=== PATIENT | female | born 1985 | race American Indian/Alaskan Native ===

== ENCOUNTER 2019-12-18 00:46 | Inpatient (IN) | payer MEDICAID ==
[2019-12-18] MEDS ORDERED: TERBUTALINE 1 MG/1 ML INJ SUB-Q PRN (00:48)
[2019-12-18] MEDS ORDERED: AMPICILLIN/NS 2 GM/100 ML 2 GM/100 ML BAG IV ONE (00:48)
[2019-12-18] MEDS ORDERED: ePHEDrine SULFATE 50 MG/1 ML INJ IV PRN ×2 (00:48→02:47)
[2019-12-18] MEDS ORDERED: LIDOCAINE (2%) 20 MG/1 ML VIAL 20 ML MDV INFILTRATI ONE (00:48)
[2019-12-18] MEDS ORDERED: TERBUTALINE 1 MG/1 ML INJ IVP PRN (00:48)
[2019-12-18] MEDS ORDERED: MINERAL OIL 30 ML ORAL LIQD PO PRN (00:48)
[2019-12-18] MEDS ORDERED: LACTATED RINGERS 1,000 ML IV SCH ×2 (01:00→04:00)
[2019-12-18] MEDS ORDERED: OXYTOCIN 20 UNIT/1000ML DRIP 20 UNITS/1,000 ML BAG IV SCH ×3 (01:00→08:00)
[2019-12-18] MEDS ORDERED: OXYTOCIN DRIP 30 UNITS/500 ML BAG IV SCH (01:00)
[2019-12-18 01:42] LABS: Hematocrit 32.1 % (30.3-42.9); Hemoglobin 10.3 gm/dl (10.1-14.3); Mean Corpuscular HGB Conc 32 % (30-34); Mean Corpuscular Volume 79 fl (79-97); Platelet Count 296 K/mm3 (140-440); Red Blood Count 4.07 M/mm3 (3.65-5.03)
--- NOTE | 2019-12-18 01:54 | History and Physical Report ---
History of Present Illness Date of examination: 12/18/19 Date of admission: 12/18/19 00:46 Chief complaint: contractions History of present illness: Pt is a 34 year old -[place] female primigravida KRYSTLE 12/31/19 at 38w1d who presents with regular painful contractions and advanced cervical dilation of 8 cm. She reports rupture of membranes at 2356 pm. She has had care at [facility] with comanagement by MFM secondary to fibroid uterus (8.1 cm ), UTI treated with Macrobid, anemia with thrombocytosis, hidradenitis s/p Derm referral. She is GBS positive. Past History Past Medical History: other (hidradenitis ) Past Surgical History: no surgical history Family/Genetic History: none Social history: no significant social history - Obstetrical History Expected Date of Delivery: 12/31/19 Actual Gestation: 38 Week(s) 1 Day(s) : 1 Medications and Allergies Allergies Allergy/AdvReac Type Severity Reaction Status Date / Time No Known Allergies Allergy Unverified 12/18/19 00:48 Active Meds: Active Medications Ephedrine Sulfate (Ephedrine Sulfate) 10 mg IV Q2M PRN PRN Reason: Hypotension Oxytocin/Sodium Chloride (Pitocin/Ns 20 Unit/1000ml Drip) 20 units in 1,000 mls @ 125 mls/hr IV DIRECT KAVON Oxytocin/Sodium Chloride (Pitocin/Ns 30 Unit/500ml) 30 units in 500 mls @ 2 mls/hr IV TITR KAVON; Protocol Lactated Ringer's (Lactated Ringers) 1,000 mls @ 125 mls/hr IV DIRECT KAVON Last Admin: 12/18/19 01:13 Dose: 125 mls/hr Documented by: Ampicillin Sodium (Ampicillin/Ns 1 Gm/50 Ml) 1 gm in 50 mls @ 100 mls/hr IV Q4HR KAVON; Protocol Mineral Oil (Mineral Oil) 30 ml PO QHS PRN PRN Reason: Constipation Terbutaline Sulfate (Brethine) 0.25 mg SUB-Q ONCE PRN PRN Reason: Hyperstimulation/Hypertonicity Terbutaline Sulfate (Brethine) 0.25 mg IVP ONCE PRN PRN Reason: Hyperstimulation/Hypertonicity Review of Systems All systems: negative - Vital Signs Vital signs: Vital Signs Temp Pulse Resp BP Pulse Ox 98.1 F 79 18 128/89 100 12/18/19 01:07 12/18/19 01:07 12/18/19 01:07 12/18/19 01:07 12/18/19 01:07 Temp Pulse Resp BP Pulse Ox 98.1 F 79 18 128/89 100 12/18/19 01:07 12/18/19 01:07 12/18/19 01:07 12/18/19 01:07 12/18/19 01:07 - Physical Exam Breasts: Positive: deferred Cardiovascular: Regular rate Lungs: Positive: Clear to auscultation Abdomen: Positive: soft (gravid ) Uterus: Positive: enlarged (gravid ) Extremities: Positive: normal - Obstetrical FHR: auscultation normal Uterine Contraction Monitor Mode: External Cervical Dilatation: 8 Cervical Effacement Percentage: 100 station: 0 Results Result Diagrams: 12/18/19 01:15 Abnormal lab results 12/18/19 Range/Units 01:15 WBC 11.7 H (4.5-11.0) K/mm3 MCH 25 L (28-32) pg RDW 18.0 H (13.2-15.2) % All other labs normal. Assessment and Plan A: IUP at 38w1d PROM Active labor GBS Positive Hidradenitis Supportiva P: Admit to labor and delivery GBS prophylaxis Monitor maternal and status
[2019-12-18] MEDS ORDERED: NALOXONE 2 MG/2 ML INJ IV PRN (02:47)
[2019-12-18] MEDS ORDERED: fentaNYL-BUPIV 2 MCG/ML-0.125% 200 MCG/100 ML BAG EPIDURAL SCH (03:00)
[2019-12-18] MEDS ORDERED: ONDANSETRON 4 MG/2 ML INJ IV PRN ×2 (03:30→08:00)
[2019-12-18] MEDS ORDERED: HYDROmorphone 1 MG/1 ML INJ IV PRN (03:30)
--- NOTE | 2019-12-18 03:32 | Event Note ---
Date: 12/18/19 Pt remains 7-8 cm despite adequate contractility for over 2.5 hours. Plan to proceed with primary section. Anesthesia aware.
[2019-12-18] MEDS ORDERED: FAMOTIDINE 20 MG/2 ML INJ IV ONE (03:33)
[2019-12-18] MEDS ORDERED: METOCLOPRAMIDE 10 MG/2 ML INJ IV ONE (03:33)
[2019-12-18] MEDS ORDERED: BICITRA ORAL LIQD 30ML PO ONE (03:33)
--- NOTE | 2019-12-18 03:36 | Anesthesia Day of Surgery ---
Anesthesia Day of Surgery - Day of Surgery Patient Examined: Yes Patient H&P Reviewed: Yes Patient is NPO: Yes Beta Blockers: No Cardiac Clearance: No Pulmonary Clearance: No Trino's Test: N/A
--- NOTE | 2019-12-18 03:36 | Anesthesia Consultation ---
Anesthesia Consult and Med Hx Date of service: 12/18/19 - Airway Anesthetic Teeth Evaluation: Good ROM Head & Neck: Adequate Mental/Hyoid Distance: Adequate Mallampati Class: Class II Intubation Access Assessment: Probably Good - Pulmonary Exam CTA: Yes - Cardiac Exam Cardiac Exam: RRR - Pre-Operative Health Status ASA Pre-Surgery Classification: ASA2 Proposed Anesthetic Plan: Epidural - Pulmonary Hx Smoking: No Hx Asthma: No Hx Respiratory Symptoms: No SOB: No COPD: No Home Oxygen Therapy: No Hx Pneumonia: No Hx Sleep Apnea: No - Cardiovascular System Hx Hypertension: No Hx Coronary Artery Disease: No Hx Heart Attack/AMI: No Hx Angina: No Hx Percutaneous Transluminal Coronary Angioplasty (PTCA): No Hx Cardia Arrhythmia: No Hx Pacemaker: No Hx Internal Defibrillator: No Hx Valvular Heart Disease: No Hx Heart Murmur: No - Central Nervous System Hx Neuromuscular Disorder: No Hx Seizures: No CVA: No Hx Back Pain: No Hx Psychiatric Problems: No - Gastrointestinal Hx Ulcer: No Hx Gastroesophageal Reflux Disease: Yes - Endocrine Hx Renal Disease: No Hx End Stage Renal Disease: No Hx Cirrhosis: No Hx Liver Disease: No Hx Insulin Dependent Diabetes: No Hx Non-Insulin Dependent Diabetes: No Hx Thyroid Disease: No Hx Hypothyroidism: No Hx Hyperthyroidism: No - Hematic Hx Anemia: No Hx Sickle Cell Disease: No - Other Systems Hx Alcohol Use: No Hx Substance Use: No Hx Cancer: No Hx Obesity: No
[2019-12-18] MEDS ORDERED: DEXMEDETOMIDINE 200 MCG/2 ML VIAL IV ONE (03:47)
[2019-12-18] MEDS ORDERED: LIDOCAINE 2%/EPINEPHRINE 1:200,000 VIAL (20 ML) INFILTRATI ONE (03:47)
[2019-12-18] MEDS ORDERED: ceFAZolin/Water 2 GM/20 ML 2 GM/20 ML SYRINGE IV NR (04:00)
[2019-12-18] MEDS ORDERED: ceFAZolin/STERILE WATER 2 GM/20 ML SYRINGE IV ONE (04:16)
[2019-12-18] MEDS ORDERED: WATER FOR IRRIG STERILE 1,500 ML BOTTLE IR ONE (04:16)
[2019-12-18] MEDS ORDERED: SODIUM CHLORIDE 0.9% IRR 1,500 ML BOTTLE IR ONE (04:16)
[2019-12-18] MEDS ORDERED: ONDANSETRON 4 MG/2 ML INJ ONE (04:23)
[2019-12-18] MEDS ORDERED: KETOROLAC 30 MG/1 ML INJ ONE (04:23)
[2019-12-18] MEDS ORDERED: METHYLERGONOVINE MALEATE 0.2 MG/ML VIAL IM ONE ×2 (04:30→04:32)
[2019-12-18] MEDS ORDERED: AMPICILLIN/NS 1 GM/50 ML 1 GM/50 ML BAG IV SCH (04:50)
--- NOTE | 2019-12-18 05:15 | Operative Report ---
Operative Report Operative Report: Date of procedure: December 18, 2019 Preoperative diagnosis: 1) IUP at 38w1d 2) Arrest of Dilation 3) Fibroid Uterus Postoperative diagnosis: Same Procedure: Primary low transverse section Surgeon: Genet Chaney M.D. Anesthesia: Regional Findings: 1) Viable female , Apgars 8 and 9, weight 2900g, (6 lb 6.2 oz) in cephalic presentation 2) Fibroid uterus with multiple fibroids including a 9 cm pedunculated subserosal fibroid on the right side of the uterus 3) Normal appearing ovaries and tubes Estimated blood loss: 900 mL IV fluids:900 mL Urine output: 200 mL, clear at the end of the procedure Drains: [place] to gravity Specimens: Placenta to pathology Complications: None. Counts correct x 3 Disposition: Stable to PACU Indication for procedure: Pt is a 34 year old -[place] female primigravida at 38w1d who presents in active labor but failed to progress beyond 8 cm despite 3 hours of adequate contractility. The decision was made to proceed to section. Operation in detail: After the risks, benefits, alternatives and complications were explained to the patient she gave informed consent for the procedure. She was subsequently taken to the operating room where regional anesthesia was noted to be adequate. She was subsequently placed in the dorsal supine position with leftward tilt and prepped and draped in a normal sterile fashion. heart tones were noted prior to incision. A timeout was performed. A Pfannenstiel skin incision was made with the knife and carried down to the layer of the fascia with the Bovie. The fascia was incised in the midline and the fascial incision was extended bilaterally with the Bovie. The fascial incision was then stretched. The rectus muscles were then in the midline and partially transected for adequate visualization. The peritoneum was then entered bluntly. The peritoneal incision was extended with good visualization of the bladder. The peritoneal incision was then stretched. The bladder blade was then placed. A transverse incision was made in the lower uterine segment with a knife and extended bilaterally with the bandage scissors. Amniotomy was performed with egress of clear fluid. The delivered without difficulty, easily followed by shoulders and body. bulb suctioned at delivery. Cord clamped and cut. handed to NICU staff in attendance. The placenta was then delivered manually. The uterus was then cleared of all clots and debris. The hysterotomy was then reapproximated with 0 Vicryl in a running locked fashion. A second layer of the same suture was used in imbricating fashion. An additional figure of eight of 0 vicryl was placed at the center side of the hysterotomy for hemostasis. The hysterotomy was inspected and hemostasis was noted. The gutters were irrigated and cleared of all clots and debris. The hysterotomy was again inspected and noted to be hemostatic. Surgicel was placed over the hysterotomy. The peritoneum was reapproximated with 2-0 Vicryl in a running fashion incorporating the rectus muscles. The fascia was reapproximated with 0 Vicryl in a running fashion. The subcutaneous tissue was reapproximated with 3-0 Vicryl in a running fashion. The skin was reapproximated with 4-0 Vicryl in a subcuticular fashion. The incision was then covered with steristrips and a pressure dressing. The procedure was then ended. The patient tolerated the procedure well and was taken to the PACU in stable condition. All instrument, lap, and needle counts were correct 3.
--- NOTE | 2019-12-18 05:15 | Procedure Note ---
OB Delivery Note - Delivery Date of Delivery: 12/18/19 Surgeon: CHARLIE HILL Estimated blood loss: other (900 mL) - Section Preop diagnosis: arrest of dilation Postop diagnosis: same section procedure: section, primary low transverse Disposition: PACU Complications: none Narrative: Please see delivery note. - A at 1 minute: 8 at 5 minutes: 9 Infant Gender: Female (2900g (6lb 6.2 oz) @ 0424 am)
[2019-12-18] MEDS ORDERED: SIMETHICONE 80 MG CHEW TAB PO PRN (08:00)
[2019-12-18] MEDS ORDERED: WITCH HAZEL/ GLYCERIN PAD TP PRN (08:00)
[2019-12-18] MEDS ORDERED: NALOXONE 0.4 MG/1 ML INJ IV PRN (08:00)
[2019-12-18] MEDS ORDERED: LANOLIN/ZINC/DIMETHICONE (LANSINOH) 7 GM TP PRN (08:00)
[2019-12-18] MEDS: KETOROLAC 30 MG/1 ML INJ IV SCH ×3 (09:09→19:57)
[2019-12-18] MEDS: ceFAZolin/NS 1 GM/50 ML 1 GM/50 ML BAG IV SCH ×2 (09:43→17:53)
[2019-12-18] MEDS: FERROUS SULFATE 325 MG TAB PO SCH (09:43)
--- NOTE | 2019-12-18 10:17 | Post Anesthesia Evaluation ---
- Post Anesthesia Evaluation Patient Participated: Yes Airway Patent: Yes Stable Respiratory Function: Yes Nausea/Vomiting: No Temp > 96.8F: Yes Pain Manageable: Yes Adequeate Hydration: Yes Anesthesia Complications: No Block Receding Appropriately: Yes Patient on Ventilator: No
[2019-12-18] MEDS: D5W/LACTATED RINGERS 1,000 ML IV SCH ×2 (13:27→21:28)
[2019-12-18 16:31] LABS: Hemoglobin 8.5 gm/dl (10.1-14.3)
[2019-12-19] MEDS: KETOROLAC 30 MG/1 ML INJ IV SCH (02:44)
[2019-12-19] MEDS: oxyCODONE /ACETAMINOPHEN 5-325MG TAB PO PRN ×3 (05:29→22:22)
[2019-12-19] MEDS ORDERED: IBUPROFEN 800 MG TAB PO SCH (06:00)
[2019-12-19] MEDS ORDERED: TETANUS,DIPH,PERTUSS(ACELL) VACCINE 0.5 ML SYRINGE IM ONE (06:00)
--- NOTE | 2019-12-19 08:05 | Progress Note ---
Assessment and Plan A: POD1 s/p primary LTCS Vital signs stable Acute on chronic anemia due to and blood loss P: Routine care Ferrous sulfate supplementation Reviewed breast feeding education Anticipate d/c to home on POD2 or 3 Subjective - Subjective Date of service: 12/19/19 Principal diagnosis: s/p primary LTCS Interval history: POD1 s/p primary LTCS for failure to progress Patient reports: appetite normal, voiding normally, pain well controlled, flatus, ambulating normally : doing well, bottle feeding (attempting to breast feed) Objective - Vital Signs Latest vital signs: Vital Signs Temp Pulse Resp BP Pulse Ox 12/19/19 05:34 97.8 F 68 20 110/74 99 12/19/19 05:29 18 12/19/19 02:44 18 12/18/19 23:47 98.0 F 85 18 112/76 100 12/18/19 21:22 98.1 F 90 18 122/80 98 12/18/19 19:57 18 12/18/19 15:46 98.9 F 86 20 118/76 97 12/18/19 14:53 20 12/18/19 11:31 98.3 F 87 20 117/76 96 12/18/19 09:09 20 Intake and Output 12/18/19 12/19/19 12/19/19 23:59 07:59 15:59 Intake Total 1360 480 Output Total 1350 250 Balance 10 230 Intake: IV 1000 D5lr 1,000 ml @ 125 mls/ 1000 hr IV DIRECT KAVON Rx#: [id number] Oral 120 Intake, Free Water 240 480 Output: Urine 1350 250 Indwelling Catheter 550 Void 800 250 Other: Total, Intake Amount 120 Total, Output Amount 250 250 # Voids Void 2 - Exam Lungs: Present: Normal air movement Abdomen: Present: soft Uterus: Present: firm, fundal height below umbilicus. Absent: bogginess Extremities: Present: normal Incision: Present: dressed - Labs Labs: Abnormal lab results 12/18/19 Range/Units 16:17 Hgb 8.5 L (10.1-14.3) gm/dl Hct 26.0 L D (30.3-42.9) %
[2019-12-19] MEDS: FERROUS SULFATE 325 MG TAB PO SCH (10:04)
[2019-12-19] MEDS ORDERED: MEASLES, MUMPS & RUBELLA 12,500 UNIT/0.5 ML VACCINE SUB-Q ONE (11:00)
[2019-12-20] MEDS: oxyCODONE /ACETAMINOPHEN 5-325MG TAB PO PRN ×2 (05:57→14:40)
--- NOTE | 2019-12-20 08:34 | Progress Note ---
Assessment and Plan A: POD2 s/p primary LTCS Vital signs stable Acute on chronic anemia due to and blood loss P: Routine care Ferrous sulfate supplementation Reviewed breast feeding education Discharge to home today Subjective - Subjective Date of service: 12/20/19 Principal diagnosis: s/p primary LTCS Interval history: POD2 s/p primary LTCS for failure to progress Patient reports: appetite normal, voiding normally, pain well controlled, flatus, ambulating normally [place]: doing well, nursing well, bottle feeding (both) Objective - Vital Signs Latest vital signs: Vital Signs Temp Pulse Resp BP Pulse Ox 12/20/19 05:57 18 12/20/19 01:30 98.2 F 93 H 20 128/88 97 12/19/19 22:22 18 12/19/19 16:14 98.0 F 93 H 18 138/86 98 12/19/19 13:02 20 Intake and Output 12/19/19 12/20/19 12/20/19 23:59 07:59 15:59 Intake Total 240 360 Balance 240 360 Intake: Oral 240 360 Other: Total, Intake Amount 240 120 # Voids Void 1 1 - Exam Lungs: Present: Normal air movement Abdomen: Present: soft Uterus: Present: firm, fundal height below umbilicus. Absent: bogginess Extremities: Present: normal Incision: Present: normal, dry, intact
--- NOTE | 2019-12-20 08:37 | Discharge Summary ---
Providers - Providers Date of Admission: 12/18/19 00:46 Date of discharge: 12/20/19 Attending physician: CHARLIE HILL Primary care physician: CHARLIE HILL Hospitalization Reason for admission: rupture of membranes, IUP at term Delivery: Procedure: primary low transverse Episiotomy: none Laceration: none Incision: normal, dry, intact Other procedures: none complications: none Discharge diagnosis: IUP at term delivered [place] baby: female Hospital course: Pt arrived with SROM, progressed to 8cm dilation. Arrest of dilation noted. Primary LTCS. course uneventful. Pt met discharge criteria on POD2. Condition at discharge: Good Disposition: DC-01 TO HOME OR SELFCARE Plan - Discharge Medications Prescriptions: Ferrous Sulfate [Feosol 325 MG tab] 325 mg PO BID #60 tablet Ibuprofen [Motrin] 600 mg PO Q6H PRN #60 tablet PRN Reason: Pain Ibuprofen [Motrin] 600 mg PO Q6H PRN #60 tablet PRN Reason: Pain oxyCODONE /ACETAMINOPHEN [Percocet 5/325] 1 tab PO Q6HR PRN #30 tablet PRN Reason: Pain oxyCODONE /ACETAMINOPHEN [Percocet 5/325] 1 tab PO Q6HR PRN #30 tablet PRN Reason: Pain - Provider Discharge Summary Activity: routine, no sex for 6 weeks, no heavy lifting 4 weeks, no strenuous exercise Diet: routine Instructions: routine Additional instructions: [] Smoking cessation referral if applicable(refer to patient education folder for contact #) [] Refer to [facility] Booklet Call your doctor immediately for: * Fever > 100.5 * Heavy vaginal bleeding ( >1 pad per hour) * Severe persistent headache * Shortness of breath * Reddened, hot, painful area to leg or breast * Drainage or odor from incision. * Keep incision clean and dry at all times and follow doctor's instructions regarding bathing/showering - Follow up plan Follow up: NAM STILL CNM [Advanced Practice Nurse] - 14 Days (Please call [facility] to schedule appointment.)
[2019-12-20] MEDS: FERROUS SULFATE 325 MG TAB PO SCH (09:12)
[2019-12-20 15:13] VITALS: BP 132/88
== END 2019-12-20 15:35 | disposition home or self-care (01) | DRG 765 ==
LOC: LD 00:46 → OBSVTOIN 00:46 → OB 07:35
PROVIDERS: ADMIT Obstetrics & Gynecology; ATTEND Obstetrics & Gynecology
PROC: 10D00Z1 Extraction of Products of Conception, Low, Open Approach (ICD-10-PCS; principal; 2019-12-18)
PROC: 3E0234Z Introduction of Serum, Toxoid and Vaccine into Muscle, Percutaneous Approach (ICD-10-PCS; 2019-12-19)
PROC: 3E0134Z Introduction of Serum, Toxoid and Vaccine into Subcutaneous Tissue, Percutaneous Approach (ICD-10-PCS; 2019-12-19)
DX: O99.824 Streptococcus B carrier state complicating childbirth (principal); D62 Acute posthemorrhagic anemia; O99.02 Anemia complicating childbirth; O34.13 Maternal care for benign tumor of corpus uteri, third trimester; O62.0 Primary inadequate contractions; O99.62 Diseases of the digestive system complicating childbirth; K21.9 Gastro-esophageal reflux disease without esophagitis; O42.92 Full-term premature rupture of membranes, unspecified as to length of time between rupture and onset of labor; L73.2 Hidradenitis suppurativa; D25.2 Subserosal leiomyoma of uterus; O75.89 Other specified complications of labor and delivery; Z3A.38 38 weeks gestation of pregnancy; Z37.0 Single live birth; Z23 Encounter for immunization
CPT/HCPCS: 36415; 85014; 85018; 85027; 86592; 86850; 86900; 86901; 88307; G0378; J0290; J0690; J1885; J2210; J2405; J2590; J2765; J3490; J7120; J7121